=== PATIENT | female | born 1985 | race American Indian/Alaskan Native ===

== ENCOUNTER 2018-04-05 08:55 | Emergency (ER) | payer MEDICAID ==
[2018-04-05] MEDS ORDERED: IBUPROFEN PO ONE (10:23)
--- NOTE | 2018-04-05 10:26 | Emergency Department Report ---
ED Extremity Problem HPI - General Chief complaint: Extremity Injury, Lower Stated complaint: RIGHT LEG PAIN Time Seen by Provider: 04/05/18 10:22 Source: patient Mode of arrival: Ambulatory Limitations: No Limitations - History of Present Illness Initial comments: Patient is a 33-year-old Female who is presenting with right ankle pain. Patient states that 3 days ago she was walking stairs she missed stepped on the last step and twisted her right ankle. Patient heard a popping sensation. Patient was hoping that the swelling and pain would improve however is not so she came in today for evaluation. Patient states aching throbbing pain is 6 out of 10 in severity. She has been walking with a limp. Severity scale (0 -10): 5 - Related Data Previous Rx's Medication Instructions Recorded Last Taken Type Naproxen [Naprosyn] 500 mg PO BID #14 tablet 01/06/18 Unknown Rx Ibuprofen [Motrin 600 MG tab] 600 mg PO Q8H PRN #21 tablet 02/20/18 Unknown Rx Ibuprofen [Motrin] 600 mg PO Q8H PRN #20 tablet 04/05/18 Unknown Rx traMADol [Ultram] 50 mg PO Q6HR PRN #10 tablet 04/05/18 Unknown Rx Allergies Allergy/AdvReac Type Severity Reaction Status Date / Time amoxicillin Allergy Rash Verified 02/19/18 17:43 Penicillins Allergy Rash Verified 01/06/18 11:21 ED Review of Systems ROS: Stated complaint: RIGHT LEG PAIN Other details as noted in HPI Comment: All other systems reviewed and negative ED Past Medical Hx - Past Medical History Previous Medical History?: Yes Additional medical history: ovarian cyst - Surgical History Past Surgical History?: Yes Hx Cholecystectomy: Yes Additional Surgical History: left ovarian cyst, ENT - Social History Smoking Status: Current Every Day Smoker Substance Use Type: None - Medications Home Medications: Home Medications Medication Instructions Recorded Confirmed Last Taken Type Naproxen [Naprosyn] 500 mg PO BID #14 tablet 01/06/18 Unknown Rx Ibuprofen [Motrin 600 MG tab] 600 mg PO Q8H PRN #21 tablet 02/20/18 Unknown Rx Ibuprofen [Motrin] 600 mg PO Q8H PRN #20 tablet 04/05/18 Unknown Rx traMADol [Ultram] 50 mg PO Q6HR PRN #10 tablet 04/05/18 Unknown Rx ED Physical Exam - General Limitations: No Limitations General appearance: alert, in no apparent distress - Head Head exam: Present: atraumatic, normocephalic - Eye Eye exam: Present: normal appearance - ENT ENT exam: Present: mucous membranes moist - Neck Neck exam: Present: normal inspection - Respiratory Respiratory exam: Present: normal lung sounds bilaterally. Absent: respiratory distress - Cardiovascular Cardiovascular Exam: Present: regular rate, normal rhythm. Absent: systolic murmur, diastolic murmur, rubs, gallop - GI/Abdominal GI/Abdominal exam: Present: soft, normal bowel sounds - Extremities Exam Extremities exam: Present: normal inspection - Expanded Lower Extremity Exam Right Ankle exam: Present: tenderness, swelling. Absent: deformity, dislocation, erythema - Back Exam Back exam: Present: normal inspection - Neurological Exam Neurological exam: Present: alert, oriented X3 - Psychiatric Psychiatric exam: Present: normal affect, normal mood - Skin Skin exam: Present: warm, dry, intact, normal color. Absent: rash ED Course Vital Signs 04/05/18 09:02 Temperature 98.3 F Pulse Rate 93 H Respiratory 16 Rate Blood Pressure 139/87 O2 Sat by Pulse 100 Oximetry ED Medical Decision Making - Radiology Data X-ray of the right ankle shows no acute process except for some soft tissue swelling. - Medical Decision Making placed in an air cast will be discharged home. Critical care attestation.: If time is entered above; I have spent that time in minutes in the direct care of this critically ill patient, excluding procedure time. ED Disposition Clinical Impression: Ankle sprain Qualifiers: Encounter type: initial encounter Involved ligament of ankle: unspecified ligament Laterality: right Qualified Code(s): S93.401A - Sprain of unspecified ligament of right ankle, initial encounter Disposition: - TO HOME OR SELFCARE Is pt being admited?: No Does the pt Need Aspirin: No Condition: Stable Instructions: Ankle Sprain (ED), Ankle Stirrup Splint (ED) Referrals: JOLLY MCADAMS MD [Staff Physician] - 3-5 Days Time of Disposition: 11:07
--- NOTE | 2018-04-05 11:06 | XRay Report ---
RIGHT ANKLE, 3 views: History: Pain and swelling after injury. Findings: Mild soft tissue swelling is identified. No acute osseous abnormality or joint pathology is identified. The fifth metatarsal base is intact. Impression: Soft tissue swelling. No acute osseous injury.
[2018-04-05 11:38] VITALS: BP 132/87
== END 2018-04-05 11:35 | disposition home or self-care (01) ==
LOC: ED 08:55
DX: S93.401A Sprain of unspecified ligament of right ankle, initial encounter (principal); F17.200 Nicotine dependence, unspecified, uncomplicated; Z90.49 Acquired absence of other specified parts of digestive tract; Z88.0 Allergy status to penicillin; Z88.1 Allergy status to other antibiotic agents; X50.1XXA Overexertion from prolonged static or awkward postures, initial encounter; Y93.01 Activity, walking, marching and hiking; Y99.8 Other external cause status; Y92.89 Other specified places as the place of occurrence of the external cause
CPT/HCPCS: 99283

== ENCOUNTER 2018-06-15 08:39 | Emergency (ER) | payer MEDICAID, OTHER ==
[2018-06-15 08:46] VITALS: BP 132/76
--- NOTE | 2018-06-15 10:09 | Emergency Department Report ---
Chief Complaint: Earache Stated Complaint: LFT EAR PAIN Time Seen by Provider: 06/15/18 10:04 - HPI History of Present Illness: Ms. Ames presents with left ear pain. No evidence of otitis on brief exam. MSE performed. Referred to ENT specialist. - Exam Vital Signs: Vital Signs 06/15/18 08:45 Temperature 97.9 F Pulse Rate 100 H Respiratory 18 Rate Blood Pressure 132/76 O2 Sat by Pulse 100 Oximetry MSE screening note: Focused history and physical exam performed. Due to findings the following was ordered: ED Disposition for MSE Clinical Impression: Ear ache Disposition: Z- MED SCREENING EXAM-LEFT Is pt being admited?: No Does the pt Need Aspirin: No Condition: Stable Instructions: Earache (ED) Referrals: MARIANA WRAY MD [Staff Physician] - 3-5 Days ALEN FITCH MD [Staff Physician] - 3-5 Days KETAN DAS MD [Referring] - 3-5 Days CHE FERRELL MD [Referring] - 3-5 Days
== END 2018-06-15 10:16 | disposition left against medical advice (07) ==
LOC: ED 08:39
DX: H92.02 Otalgia, left ear (principal); Z88.0 Allergy status to penicillin; Z88.1 Allergy status to other antibiotic agents; Z88.2 Allergy status to sulfonamides
CPT/HCPCS: 99282

== ENCOUNTER 2021-10-08 05:46 | Day surgery (SDC) | payer MEDICAID ==
[2021-10-08] MEDS ORDERED: GABAPENTIN 300 MG CAP PO NR (06:00)
[2021-10-08] MEDS ORDERED: CELECOXIB 200 MG CAP PO NR (06:00)
[2021-10-08] MEDS ORDERED: LACTATED RINGERS 1,000 ML IV SCH (06:00)
[2021-10-08] MEDS ORDERED: ACETAMINOPHEN 500 MG TAB PO SCH (06:00)
[2021-10-08] MEDS ORDERED: SCOPOLAMINE TRANSDERMAL PATCH 72 HR TD NR (06:00)
[2021-10-08] MEDS ORDERED: MIDAZOLAM 2 MG/2 ML INJ IV NR (06:00)
[2021-10-08] MEDS ORDERED: fentaNYL 100 MCG/2 ML INJ IV PRN (06:00)
[2021-10-08 06:56] LABS: Basophils # (Auto) 0.1 K/mm3 (0.0-0.1); Basophils % (Auto) 0.9 % (0.0-1.8); Eosinophils # (Auto) 0.4 K/mm3 (0.0-0.4); Hematocrit 36.8 % (30.3-42.9); Lymphocytes # (Auto) 2.4 K/mm3 (1.2-5.4); Lymphocytes % (Auto) 20.5 % (13.4-35.0); Mean Corpuscular HGB Conc 33 % (30-34); Mean Corpuscular Volume 80 fl (79-97); Monocytes # (Auto) 0.7 K/mm3 (0.0-0.8); Monocytes % (Auto) 6.4 % (0.0-7.3); Platelet Count 227 K/mm3 (140-440); Red Blood Count 4.59 M/mm3 (3.65-5.03); Red Cell Distribution Width 15.9 % (13.2-15.2)
[2021-10-08] MEDS ORDERED: GENTAMICIN 80 MG in SODIUM CHLORIDE 0.9% 100 ML IV ONE (06:56)
--- NOTE | 2021-10-08 06:56 | Short Stay Summary ---
Short Stay Documentation Date of service: 10/08/21 Narrative H&P: 36y/o with chronic pelvic pain and dysfunctional uterine bleeding. Patient has a history of intermittent ovarian cysts. She elects for definitive surgical management. - History Principal diagnosis: chronic pelvic pain Past Medical History: diabetes Past Surgical History: cholecystectomy, Other (ovarian cystectomy) Social history: - Allergies and Medications Current Medications: Allergies amoxicillin Allergy (Verified 10/01/21 19:10) Rash nitrofurantoin [From Macrobid] Allergy (Verified 10/01/21 19:10) Rash Penicillins Allergy (Verified 10/01/21 19:10) Rash Home Medications Medication Instructions Recorded Confirmed Last Taken Type Aspirin [[place]] 325 mg PO DAILY 10/01/21 10/01/21 Unknown History AtorvaSTATin [Lipitor] 40 mg PO QHS 10/01/21 10/01/21 Unknown History Duloxetine HCl 60 mg PO DAILY 10/01/21 10/01/21 Unknown History Gabapentin [Neurontin] 300 mg PO HS 10/01/21 10/01/21 Unknown History Loratadine [Allergy Relief] 10 mg PO DAILY 10/01/21 10/01/21 Unknown History Metoprolol [Lopressor] 25 mg PO DAILY 10/01/21 10/01/21 Unknown History Omeprazole 20 mg PO DAILY PRN 10/01/21 10/01/21 Unknown History hydroCHLOROthiazide [HCTZ] 25 mg PO QDAY 10/01/21 10/01/21 Unknown History Active Medications Acetaminophen (Acetaminophen 500 Mg Tab) 1,000 mg PO PREOP ASHTYN Stop: 10/08/21 23:59 Celecoxib (Celecoxib 200 Mg Cap) 200 mg PO PREOP NR Stop: 10/08/21 23:59 Fentanyl (Fentanyl 100 Mcg/2 Ml Inj) 100 mcg IV ONCE PRN PRN Reason: sedation for nerve block Stop: 10/08/21 23:59 Gabapentin (Gabapentin 300 Mg Cap) 300 mg PO PREOP NR Stop: 10/08/21 23:59 Lactated Ringer's (Lactated Ringers) 1,000 mls @ 100 mls/hr IV DIRECT ASHTYN Stop: 10/08/21 23:59 Methocarbamol (Methocarbamol 750 Mg Tab) 750 mg PO PREOP ASHTYN Stop: 10/08/21 23:59 Midazolam HCl (Midazolam 2 Mg/2 Ml Inj) 2 mg IV PREOP NR Stop: 10/08/21 23:59 Scopolamine (Scopolamine Transdermal Patch 72 Hr) 1 each TD PREOP NR Stop: 10/08/21 23:59 - Physical exam General appearance: no acute distress Integumentary: no rash HEENT: Atraumatic Lungs: Clear to auscultation Breasts: deferred Heart: Regular rate Gastrointestinal: normal - Brief post op/procedure progress note Date of procedure: 10/08/21 Pre-op diagnosis: Chronic pelvic pain; ovarian cyst Post-op diagnosis: same Procedure: Robotic hysterectomy and bilateral salpingo-oophorectomy Lysis of adhesions Anesthesia: KAYLAA Surgeon: ANA PIMENTEL Estimated blood loss: minimal Pathology: list (Uterus cervix bilateral tubes right ovary; left ovary surgically absent) Specimen disposition: to lab Condition: stable - Hospital course Hospital course: Patient was admitted the day of surgery underwent a robotic hysterectomy. Please see operative note for details of surgery. Postoperative course was uneventful. - Disposition Condition at discharge: Good Disposition: 01 HOME / SELF CARE / HOMELESS Short Stay Discharge Plan Activity: other (Pelvic rest for 6 weeks) Diet: regular Additional Instructions: Schedule follow-up with Dr. Pimentel in 4 weeks Pelvic rest for 6 weeks No tub baths for 4 weeks but patient may shower Patient may drive in 2 weeks
[2021-10-08 07:09] LABS: Blood Urea Nitrogen 6 mg/dL (7-17); Calcium 9.4 mg/dL (8.4-10.2); Hemolysis Index 0
[2021-10-08 07:12] LABS: BUN/Creatinine Ratio 10
[2021-10-08] MEDS ORDERED: LIDOCAINE MPF (2%) 20 MG/1 ML VIAL 5 ML ONE (07:14)
[2021-10-08] MEDS ORDERED: ONDANSETRON 4 MG/2 ML INJ ONE (07:14)
[2021-10-08] MEDS ORDERED: ROCURONIUM 50 MG/5 ML INJ IV ONE ×2 (07:14→08:56)
[2021-10-08] MEDS ORDERED: dexAMETHasone 20 MG/5 ML VIAL ONE (07:14)
[2021-10-08] MEDS ORDERED: HYDROmorphone 1 MG/1 ML INJ ONE (07:15)
[2021-10-08] MEDS ORDERED: propofoL 200 MG/20 ML VIAL IV ONE (07:15)
[2021-10-08] MEDS ORDERED: fentaNYL 100 MCG/2 ML INJ ONE (07:15)
[2021-10-08] MEDS ORDERED: KETOROLAC 30 MG/1 ML INJ ONE (07:24)
--- NOTE | 2021-10-08 07:26 | Anesthesia Consultation ---
Anesthesia Consult and Med Hx Date of service: 10/08/21 - Airway Anesthetic Teeth Evaluation: Good, Chipped (#6) ROM Head & Neck: Adequate Mental/Hyoid Distance: Adequate Mallampati Class: Class III Intubation Access Assessment: Possibly Difficult - Pulmonary Exam CTA: Yes - Cardiac Exam Cardiac Exam: RRR - Pre-Operative Health Status ASA Pre-Surgery Classification: ASA2 Proposed Anesthetic Plan: General Nerve Block: TAP - Pulmonary Hx Smoking: Yes (02/25 PPD) Hx Respiratory Symptoms: No - Cardiovascular System Hx Hypertension: Yes Hx Heart Attack/AMI: No Hx Percutaneous Transluminal Coronary Angioplasty (PTCA): No Hx Cardia Arrhythmia: Yes (hx palpitations w/ neg cardiac w/u per patient; took metoprolol today) Hx Pacemaker: No Hx Internal Defibrillator: No - Central Nervous System CVA: No - Gastrointestinal Hx Gastroesophageal Reflux Disease: Yes (asymptomatic today) - Endocrine Hx Renal Disease: No Hx Liver Disease: No Hx Insulin Dependent Diabetes: Yes (insulin pump (currently off)) Hx Thyroid Disease: No - Other Systems Hx Obesity: Yes (BMI 34) - Additional Comments Anesthesia Medical History Comments: No hx anesthetic complications. Reports recent preop medical eval with PCP with no concerns. Records not available for review. No signs/symptoms decompensated cardiac condition at this time.
[2021-10-08] MEDS ORDERED: HYDROmorphone 0.5 MG/0.5 ML INJ IV PRN (07:27)
[2021-10-08] MEDS ORDERED: oxyCODONE /ACETAMINOPHEN 5-325MG TAB PO PRN (07:27)
--- NOTE | 2021-10-08 07:27 | Anesthesia Day of Surgery ---
Anesthesia Day of Surgery - Day of Surgery Patient Examined: Yes Patient H&P Reviewed: Yes Patient is NPO: Yes Beta Blockers: Yes (metoprolol today AM)
[2021-10-08] MEDS ORDERED: BUPIVACAINE-EPINEPHRINE/PF 0.25%-1:200,000 (30 ML) VIAL INFILTRATI ONE (07:31)
[2021-10-08] MEDS ORDERED: dexAMETHasone 4 MG/ML VIAL ONE (07:31)
[2021-10-08] MEDS ORDERED: NEOMY 40 MG/POLYMYXIN B 200,000 UNITS/ML (GU) AMPULE IR ONE ×2 (07:38→09:26)
[2021-10-08] MEDS ORDERED: SODIUM CHLORIDE P/F VIAL 10 ML 0 ML ONE (07:38)
[2021-10-08] MEDS ORDERED: BUPIVACAINE/PF (0.5%) 5 MG/1 ML 30 ML VIAL INFILTRATI ONE (07:38)
[2021-10-08] MEDS ORDERED: METHYLENE BLUE 50 MG/10 ML AMP ONE (07:38)
[2021-10-08] MEDS ORDERED: SODIUM CHLORIDE 0.9% 250ML 250 ML ONE (07:55)
[2021-10-08] MEDS ORDERED: GENTAMICIN/NS 80 MG/100 ML 100 ML IV NR (08:00)
[2021-10-08] MEDS ORDERED: ePHEDrine SULFATE 50 MG/1 ML INJ ONE (08:42)
[2021-10-08] MEDS ORDERED: SODIUM CHLORIDE 0.9% IRR 1,500 ML BOTTLE IR ONE (09:26)
[2021-10-08] MEDS ORDERED: GLYCOPYRROLATE 0.4 MG/2 ML INJ ONE (09:40)
[2021-10-08] MEDS ORDERED: NEOSTIGMINE 10MG/10 ML INJ MDV ONE (09:40)
--- NOTE | 2021-10-08 09:46 | Operative Report ---
Operative Report Operative Report: Date of surgery: October 08, 2021 Preoperative diagnoses: Chronic pelvic pain; ovarian cyst; dysfunctional uterine bleeding Postoperative diagnoses: Same as above Procedure: Robotic hysterectomy and bilateral salpingectomy; right oophorectomy; lysis of adhesions Surgeon: Ernestine Sim M.D. Needle Leader: Carlos Cherry Anesthesia: Gen. endotracheal anesthesia Estimated blood loss: Less than 50 mL Pathology: Uterus, cervix, bilateral tubes, right ovary Indication: 36-year-old -0-2-3 with a history of chronic pelvic pain and recurrent ovarian cyst. Patient reports a history of heavy menses and has elected to undergo definitive surgical management. The patient has a history of a left oophorectomy Procedure: The patient was taken to the operating room and given general endotracheal anesthesia without complication. She is prepped and draped in a normal sterile fashion. A bivalve speculum was placed in the patient's vagina and a single- tooth tenaculum placed on the anterior lip of the cervix. The uterus was sounded with the uterine sound. A stay suture was placed at 12 o'clock on the ectocervix. A #waywire uterine manipulator was placed in the bivalve speculum was then removed. Attention was then turned to the patient's abdomen where a 12 millimeter supra umbilical skin incision was then made. A Veress needle was placed and peritoneal entry was verified water-filled syringe. Insufflation of the peritoneal cavity was performed with CO2 gas. The 12 mm trocar was then placed under direct visualization. An additional 8 mm trocar was placed on the patient's left and right lateral side just opposite of the supraumbilical trocar. An additional 5 mm right lateral trocar was then placed as the accessory port. The Martín Kramer device was used to close the fascia of the 12 mm incision. The patient was then placed in steep Trendelenburg. The da Elly robot was then engaged. A fenestrated forcep was placed in arm 2 and a vessel sealer was placed in arm 1. General survey of the abdomen and pelvis revealed multiple omental adhesions to the anterior abdominal wall. The right ovary was enlarged with multiple ovarian cysts. The left ovary was surgically absent. The surgeon then transferred to the surgical console. The omental adhesions were lysed with the vessel sealer. The right ovarian cyst appeared to be hemorrhagic in nature. The infundibulopelvic ligament was then isolated on the right. The vessel sealer was used to coagulate the ligament which was then transected. The tube and ovary were transected from the supply. The round ligament was then coagulated and transected also. The vesicouterine peritoneum was then entered from the patient's right side. The uterine vessels were then coagulated with the vessel sealer. The vessels were then transected . Attention was then turned to the patient's left side where the infundibulopelvic ligament and mesosalpinx were again isolated coagulated and transected. The vesical peritoneum was then entered from the left and joined in the midline. Peritoneum was reflected off of the lower uterine segment. Uterine vessels were then coagulated and then transected. The blood supply to the uterus was adequately contained, a posterior colpotomy was made. The V care ring was visualized. Posterior colpotomy was created with the monopolar scissors. The incision was continued circumferentially until anterior colpotomy was made. The cervix and uterus were amputated from the vaginal cuff. The uterus was then removed along with the tubes and ovaries bilaterally through the vagina and a warm laparotomy sponge was placed and maintain the pneumoperitoneum. The vaginal cuff was then closed in a running fashion with V lock suture. There was a small amount of bleeding coming from the right pelvic cuff. A figure of 8 stitch was placed for hemostasis. Irrigation of the pelvis was performed. Surgicel powder was applied to the incision. The skin was then reapproximated with 4-0 Monocryl. The tissue was sent to pathology which included the cervix, uterus, tubes and ovaries. The patient was then successfully extubated. She was then taken to the recovery room in stable condition. All sponge laps and needle counts were correct x2.
--- NOTE | 2021-10-08 12:54 | Post Anesthesia Evaluation ---
- Post Anesthesia Evaluation Patient Participated: Yes Airway Patent: Yes Stable Respiratory Function: Yes Nausea/Vomiting: No Temp > 96.8F: Yes Pain Manageable: Yes Adequeate Hydration: Yes Anesthesia Complications: No
[2021-10-08 13:11] VITALS: BP 117/78
== END 2021-10-08 13:05 | disposition home or self-care (01) ==
LOC: OR 05:46
PROVIDERS: ATTEND Obstetrics & Gynecology
DX: N92.5 Other specified irregular menstruation (principal); D25.2 Subserosal leiomyoma of uterus; N72 Inflammatory disease of cervix uteri; Q50.4 Embryonic cyst of fallopian tube; G62.9 Polyneuropathy, unspecified; I42.9 Cardiomyopathy, unspecified; E11.42 Type 2 diabetes mellitus with diabetic polyneuropathy; E78.00 Pure hypercholesterolemia, unspecified; I10 Essential (primary) hypertension; E66.9 Obesity, unspecified; K21.9 Gastro-esophageal reflux disease without esophagitis; F17.210 Nicotine dependence, cigarettes, uncomplicated; Z88.6 Allergy status to analgesic agent; Z88.0 Allergy status to penicillin; Z79.899 Other long term (current) drug therapy; Z79.82 Long term (current) use of aspirin; Z98.890 Other specified postprocedural states; Z90.49 Acquired absence of other specified parts of digestive tract; Z98.51 Tubal ligation status; Z68.34 Body mass index [BMI] 34.0-34.9, adult
CPT/HCPCS: 36415; 58552; 64488; 80048; 82962; 85025; 86850; 86900; 86901; 88307; J1100; J1170; J1580; J1815; J1885; J2250; J2405; J2704; J2710; J3010; J3490; J7050; J7120; J7502; Q9968; S2900; 64450